=== PATIENT | male | born 1990 | race Caucasian/White ===

== ENCOUNTER → 2022-12-25 | Outpatient (CLI) | payer OTHER ==
--- NOTE | 2022-12-25 09:39 | Diagnostic Imaging Report ---
HISTORY: FOOT DISCOLORED TECHNIQUE: Multiple real-time grayscale images were obtained over the left lower extremity in various projections. Additional duplex Doppler and color Doppler images were also obtained. COMPARISON: None FINDINGS: Left lower extremity: The major arteries of the left leg are patent to the ankle. There is detectable flow at the dorsalis pedis and posterior tibial arteries at the ankle. Multiphasic waveform is present throughout the left lower extremity arterial system. There is no focal velocity changes to suggest a hemodynamically significant stenosis. IMPRESSION: 1. No large vessel occlusion or hemodynamically significant stenosis in the left lower extremity. Dictated by: Dictated on workstation # [id number]
== END ==
LOC: RAD 09:00
PROVIDERS: ATTEND Family Medicine
DX: I83.90 Asymptomatic varicose veins of unspecified lower extremity (principal)
CPT/HCPCS: 93926